=== PATIENT | female | born 1995 | race Caucasian/White ===

== ENCOUNTER 2020-11-29 21:55 | Emergency (ER) | payer OTHER, SELFPAY ==
[2020-11-29 22:15] VITALS: BP 140/86; PULSE 82; RESP 16; TEMP 36.6; O2SAT 98; BMI 30.5
[2020-11-30 00:32] LABS: Add Urine Microscopic? YES; Bilirubin Urine Neg (Negative); Blood Urine 3+ (Negative); Glucose Urine UA Norm (Normal); Ketones Urine Negative (Negative); Leukocyte Esterase Urine Negative (Negative); Nitrate Urine Negative (Negative); Protein Urine Neg (Negative); Urine Appearance Clear (CLEAR); Urine Color Yellow (Yellow); Urobilinogen Urine 1 mg/dL (Negative); pH Urine 5 (5-7)
[2020-11-30 00:38] LABS: Bacteria Urine TRACE /hpf; Calcium Oxalate Crystals Urine 40-55 /hpf; RBC Urine 15-25 /hpf (0-2); Squamous Epithelial Cell Urine 0-4 /hpf (0-5); WBC Urine 0-4 /hpf (0-5)
[2020-11-30 00:39] LABS: Add Urine Culture? No
== END 2020-11-30 00:24 | disposition left against medical advice (07) ==
PROVIDERS: Physician Assistant; Emergency Provider Family Medicine
DX: Z53.21 Procedure and treatment not carried out due to patient leaving prior to being seen by health care provider (principal)
CPT/HCPCS: 81001; 81025

== ENCOUNTER 2021-01-24 19:45 | Emergency (ER) | payer OTHER, SELFPAY ==
[2021-01-24 19:55] VITALS: BP 166/79; PULSE 69; RESP 18; TEMP 36.9; O2SAT 98; BMI 29.9
--- NOTE | 2021-01-24 21:49 | W.ED.ANIMALB ---
HPI - Animal Bite General: Chief Complaint: Animal Bite Stated Complaint: Dog Bite Time Seen by Provider: 01/24/21 21:14 History of Present Illness: HPI narrative: 26-year-old female comes in today with injury to the right hand. Patient was trying to break up 2 dogs fight and was bit on the back of the right hand. Patient has good range of motion of the hand. Patient has two 1 to 2 cm lacerations and one puncture wound to the back of the right hand. Patient reports animals immunizations were up-to-date. Patient's tetanus needed updated. Patient denies any allergies to medication. Review of Systems General: Reports: 10 or more systems reviewed and unremarkable except in HPI and below Skin/Breast: Reports: other (Laceration hand.) Physical Exam Const: COMMON NORMALS: no acute distress and patient oriented x3 GENERAL APPEARANCE: cooperative HENMT: COMMON NORMALS: normocephalic and Normal external nose present HEAD & SCALP: normal to inspection and normocephalic NOSE: Normal external nose present Eye: GENERAL EYE: appearance normal, both eyes and all related structures Neck/C-Spine: COMMON NORMALS: full ROM Chest: COMMONS NORMALS: normal inspection of the chest Resp: COMMON NORMALS: normal respiratory effort EFFORT & INSPECTION: Yes able to speak in complete sentences Cardio: COMMON NORMALS: regular rate and regular rhythm RATE: regular rate RHYTHM: regular rhythm GI: COMMON NORMALS: non-tender Extremity: COMMON NORMALS: normal to inspection Neuro: COMMON NORMALS: patient oriented x3 and moves all extremities Psych: COMMON NORMALS: mental status grossly normal and cooperative Skin: NARRATIVE SKIN EXAM: Two 1 cm lacerations to the dorsal right hand and one puncture wound. Hand has good range of motion and good strength. Procedures Laceration Laceration 1: Side (If applicable): right Size (cm): 1 Description: linear Depth: simple, single layer Local Anesthetic: lidocaine 1% Pre-repair: wound explored and irrigated extensively Skin layer closed with: nylon Size (cm): 4-0 Number of sutures: 1 Technique: horizontal mattress Laceration 2: Site: hand Side (If applicable): right Size (cm): 1 Description: linear Depth: simple, single layer Local Anesthetic: lidocaine 1% Pre-repair: wound explored and irrigated extensively Skin layer closed with: nylon Size (cm): 4-0 Number of sutures: 1 Technique: horizontal mattress Course Vital Signs: Vital signs: Vital Signs Temperature 98.4 F 01/24/21 19:55 Pulse Rate 69 01/24/21 19:55 Respiratory Rate 18 01/24/21 19:55 Blood Pressure 166/79 01/24/21 19:55 Pulse Oximetry 98 01/24/21 19:55 MDM - Animal Bite MDM Narrative: Medical decision making narrative: Patient comes in for injury to the right hand. On exam we note three 1 cm superficial lacerations to the dorsum of the right hand, and one puncture wound. Patient has good range of motion of the hand, no tendon function deficit is noted. Normal nerve sensation is noted. Differential diagnosis includes but not limited to need for prophylaxis antibiotic, need for prophylaxis tetanus, and lacerations. No sign of fracture or foreign bodies were noted in the wounds. Patient was updated on tetanus. Patient was started on Augmentin 1 tablet twice a day for 7 days. Encourage activity as tolerated. Recommend sutures out in 7 days. Reviewed care and other instructions with patient who reported understanding. Discharge Plan Discharge Patient Disposition: Home Clinical Impression: Dog bite Qualifiers: Encounter type: initial encounter Qualified Code(s): W54.0XXA - Bitten by dog, initial encounter Laceration of hand Qualifiers: Encounter type: initial encounter Foreign body presence: without foreign body Laterality: right Qualified Code(s): S61.411A - Laceration without foreign body of right hand, initial encounter Condition: Stable Prescriptions: New Augmentin 875-125 mg tablet 1 tab PO BID Qty: 14 RF: 0 Discharge Orders: Discharge ED (Routine); Ordered 01/24/21 Ordered By: Hector Feliciano Discharge Diet: Usual diet Discharge Activity: Increase activity as tolerated Patient Instructions: Suture Care (ED), Opioid Safety Activity Restrictions/Additional Instructions: Keep wound clean and dry. Activity as tolerated. Take antibiotic 1 tablet twice a day for 7 days. Sutures out in 7 days. Follow-up with primary care in 1 week for recheck. Return to the ED for worsening symptoms or new concerns. Coding Level of Care Code ED Railway Engineer for Agnieszka Malik
[2021-01-24] MEDS: amoxicillin-clav 875-125 mg Tablet 1 TAB PO (22:23)
[2021-01-24 22:29] VITALS: PULSE 84; RESP 16; O2SAT 96
== END 2021-01-24 22:33 | disposition home or self-care (01) ==
PROVIDERS: Emergency Provider Nurse Practitioner Family
DX: S61.451A Open bite of right hand, initial encounter (principal); W54.0XXA Bitten by dog, initial encounter
CPT/HCPCS: 12001; 90715; 99283

== ENCOUNTER 2021-07-22 18:25 | Emergency (ER) | payer OTHER, SELFPAY ==
--- NOTE | 2021-07-22 18:49 | CTR_ITS ---
PROCEDURE INFORMATION: Exam: CT Head Without Contrast Exam date and time: 07/22/2021 7:46 PM Age: 26 years old Clinical indication: Injury or trauma; Fall; Blunt trauma (contusions or hematomas); Without loss of consciousness; Patient HX: Fell out of bed hitting back of head on dresser; Additional info: Head injury TECHNIQUE: Imaging protocol: Computed tomography of the head without contrast. Radiation optimization: All CT scans at this facility use at least one of these dose optimization techniques: automated exposure control; mA and/or kV adjustment per patient size (includes targeted exams where dose is matched to clinical indication); or iterative reconstruction. COMPARISON: No relevant prior studies available. RADIATION DOSE METRICS: Total DLP (mGy-cm): 828.1 FINDINGS: Brain: Normal. No hemorrhage. Unremarkable white matter. No mass effect. Cerebral ventricles: No ventriculomegaly. Paranasal sinuses: Partially opacified posterior ethmoid air cells. No fluid levels. Mastoid air cells: Visualized mastoid air cells are well aerated. Auditory system: Filling defects in the bilateral external auditory canals is most likely cerumen. Bones/joints: Unremarkable. No acute fracture. Soft tissues: Unremarkable. CT/CT head wo con* [id number] IMPRESSION: 1. No acute intracranial abnormality.
[2021-07-22 18:59] VITALS: BP 131/85; PULSE 83; RESP 16; TEMP 37.1; O2SAT 100; BMI 29.2
--- NOTE | 2021-07-22 19:21 | ED_ITS ---
HPI - Fall General: Chief Complaint: Fall Stated Complaint: Hit head Time Seen by Provider: 07/22/21 19:05 History of Present Illness: 26-year-old female who fell off of her bed, striking the back side of her head. This was around 1 PM. She has throbbing in her head. Pain is decreased after acetaminophen and ibuprofen. She was nauseated for a while. She is not dizzy. MD complaint: fall Onset (ago): hour(s) Fall from: standing Place fall occurred: home Loss of consciousness: None Prolonged down time: no Symptoms prior to fall: none Context: tripped/slipped Location of injury: head Severity: moderate Quality: throbbing Associated symptoms-after fall: Reports headache(s); Denies abdominal pain, chest pain, confusion, difficulty walking, hematuria, lightheadedness, neck pain, numbness, short of breath, vertigo or weakness Review of Systems Card: Denies: chest pain or lightheadedness GI: Denies: abdominal pain : Denies: hematuria Musc: Denies: neck pain Neuro: Reports: headache(s); Denies: difficulty walking, vertigo or confusion Physical Exam Const: GENERAL APPEARANCE: cooperative and comfortable ORIENTATION/CONSCIOUSNESS: Yes awake, Yes oriented to person and Yes oriented to time HENMT: COMMON NORMALS: normocephalic and Normal external nose present HEAD & SCALP: normocephalic FACE & SINUS: normal facial exam NOSE: Normal external nose present THROAT: posterior oropharynx normal Eye: COMMON NORMALS: Equal, round and reactive pupils present and EOMs intact bilaterally PUPIL: Yes Equal, round and reactive pupils present Neck/C-Spine: COMMON NORMALS: full ROM GENERAL: No tender Resp: COMMON NORMALS: normal respiratory effort and No use of accessory muscles Cardio: COMMON NORMALS: regular rate and regular rhythm RATE: regular rate RHYTHM: regular rhythm Neuro: JARED COMA SCALE: document GCS findings Carbon coma scale eye opening: Spontaneous Jared coma scale verbal response: Orientated Jared coma scale motor response: Obey commands Jared coma scale total score: 15 SENSORIUM/ORIENTATION: Yes oriented to person and Yes oriented to time CRANIAL NERVES: Yes CN normal except as noted COORDINATION/BALANCE: [id number] test normal, does not sway with eyes open and Romberg test negative SPEECH: speech normal MOTOR EXAM: Pronator motor function not present COORDINATION: [id number] test normal and does not sway with eyes open Psych: COMMON NORMALS: mental status grossly normal Course Vital Signs: Vital signs: Vital Signs Temperature 98.8 F 07/22/21 18:59 Pulse Rate 83 07/22/21 18:59 Respiratory Rate 16 07/22/21 18:59 Blood Pressure 131/85 07/22/21 18:59 Pulse Oximetry 100 07/22/21 18:59 MDM - Fall Medical Decision Making 26-year-old female who hit her head. Head CT is negative. Her neurological exam is normal. She will be allowed discharge Lab Data Radiology Impressions Head CT 07/22/21 18:49 IMPRESSION: 1. No acute intracranial abnormality. Discharge Plan Discharge Patient Disposition: Home Clinical Impression: Concussion without loss of consciousness Condition: Stable Prescriptions: No Action Augmentin 875-125 mg tablet 1 tab PO BID Qty: 14 0RF Discharge Orders: Discharge ED (Routine); Ordered 07/22/21 Ordered By: Jose Kerr Discharge Diet: Advance as tolerated Discharge Activity: Limit activity as instructed Patient Instructions: Concussion (ED) Activity Restrictions/Additional Instructions: Rest until symptoms resolve. Return to the emergency department for vomiting, worsening headache, mental status changes, dizziness, any other concerning symptoms. Coding Level of Care Code ED Supervisor Type Bar And Segment for Agnieszka Malik Exam Comprehensive
== END 2021-07-22 20:23 | disposition home or self-care (01) ==
PROVIDERS: Emergency Provider Emergency Medicine
DX: S06.0X0A Concussion without loss of consciousness, initial encounter (principal); W06.XXXA Fall from bed, initial encounter
CPT/HCPCS: 70450; 99282

== ENCOUNTER 2021-08-17 10:08 | Emergency (ER) | payer OTHER, SELFPAY ==
[2021-08-17 10:40] VITALS: BP 123/77; PULSE 93; RESP 16; TEMP 36.7; O2SAT 98; BMI 29.8
[2021-08-17 11:41] LABS: Basophils % 0.3 %; Eosinophils # 0.1 10^3/uL (0.0-0.8); Eosinophils % 0.8 %; Hematocrit 41.6 % (37.0-47.0); Hemoglobin 13.9 g/dL (11.5-15.3); Lymphocytes % 21.8 %; Mean Corpuscular HGB Conc 33.4 g/dL (30.0-36.0); Mean Corpuscular Hemoglobin 28.5 pg (28.0-34.0); Mean Corpuscular Volume 85.4 fl (81-99); Mean Platelet Volume 10.1 fL (7.4-10.4); Monocytes # 0.6 10^3/uL (0.2-0.9); Monocytes % 6.2 %; Neutrophils # 6.54 10^3/uL (1.8-7.7); Neutrophils % 70.7 %; Nucleated Red Blood Cells % 0 %; Platelet Count 330 10^3/cmm (130-400); Red Blood Count 4.87 10^6/uL (4.1-5.3); White Blood Count 9.2 10^3/uL (4.0-10.0)
--- NOTE | 2021-08-17 11:43 | ED_ITS ---
HPI - General Adult General: Chief complaint: Back Pain/Injury Stated complaint: lower back pain Time Seen by Provider: 08/17/21 11:07 History of Present Illness: Patient is a 26-year-old female with history of recurrent UTI presenting to the emergency room with urinary discomfort, urinary urgency and bilateral flank pain x1 week. Patient tells me that she has a history of UTI and thinks that she may be having a UTI again. Patient tells me she took cranberry juice without any relief of symptoms. Patient denies any fever or chills, cough, runny nose sore throat. Patient denies any abdominal pain, new vaginal discharge, decreased p.o. intake with significant nausea or vomiting. Patient denies any melena/hematochezia or any other abdominal complaints. No prior history acute renal colic. Onset: 1 week ago Duration:1 week Location:home Severity:mild/moderate Associated symptoms: Deny chest pain, dyspnea, nausea, rash, palpitations or vomiting Review of Systems Const: Denies: fever(s) or chills Eyes: Denies: change in vision ENMT: Denies: mouth pain Card: Denies: chest pain or palpitations Resp: Denies: dyspnea or non-productive cough GI: Denies: abdominal pain, nausea, vomiting or diarrhea : Reports: flank pain, dysuria and urinary frequency Musc: Denies: extremity pain Skin/Breast: Denies: rash or new lesions Neuro: Denies: weakness in extremities Psych: Reports: other (Normal mood) Juan/Lymph: Denies: easy bruising PFS ED PFSH: Medical History UTI (urinary tract infection) Social History Smoking and tobacco status: never smoked Alcohol intake: never Substance/Drug Use: never Physical Exam Const: COMMON NORMALS: alert HENMT: COMMON NORMALS: atraumatic HEAD & SCALP: atraumatic MOUTH: moist mucous membranes not abnormal Eye: COMMON NORMALS: EOMs intact bilaterally and conjunctivae normal CONJUNCTIVA: Yes conjunctivae normal Neck/C-Spine: COMMON NORMALS: full ROM and supple Resp: COMMON NORMALS: normal respiratory effort and clear to auscultation bilaterally AUSCULTATION: clear to auscultation bilaterally Cardio: COMMON NORMALS: regular rate RATE: regular rate GI: COMMON NORMALS: Soft to palpation and non-tender PALPATION: Yes Soft to palpation OTHER: No focal TTP. NO guarding rebound, guarding, rigidity. +mild R CVA tenderness to percussion. Neg Arriola/Neg McBurney's point tenderness, no suprabupic tenderness to palpation. Extremity: COMMON NORMALS: full ROM Neuro: SENSORIUM/ORIENTATION: Yes alert MOTOR EXAM: No Abnormal motor strength present and Other motor observations present (no focal motor deficits) Psych: COMMON NORMALS: speech normal SPEECH: Yes normal speech MOOD & AFFECT: Yes euthymic mood Course Vital Signs: Vital signs: Vital Signs Temperature 98.1 F 08/17/21 10:40 Pulse Rate 93 08/17/21 10:40 Respiratory Rate 16 08/17/21 10:40 Blood Pressure 123/77 08/17/21 10:40 Pulse Oximetry 98 08/17/21 10:40 MDM - General Adult Medical Decision Making 26-year-old female history of recurrent UTI presents emergency room with complaints of dysuria, polyuria, and bilateral flank pain right greater than left. On exam, patient has mild right CVA tenderness. White count minimal. UA consistent with UTI. At the present time, patient does not have any significant nausea or vomiting. Patient is able to tolerate p.o. without any difficulty. Heart rate improved without any intervention. Rx cefdinir BID x 10 days for UTI/early pyelonephritis, zofran PRN nausea/vomiting Disposition: Discharge. Patient counseled regarding diagnostic impression, treatment plan. Patient given ED strict return precautions to return for continuation, worsening, or development of new symptoms. Instructed to f/u w/ PCP regarding symptoms today. Patient verbalized understanding. Lab Data : 08/17/21 11:29 08/17/21 11:29 Laboratory Results WBC 9.2 10^3/uL (4.0-10.0) 08/17/21 11:29 RBC 4.87 10^6/uL (4.1-5.3) 08/17/21 11:29 Hgb 13.9 g/dL (11.5-15.3) 08/17/21 11:29 Hct 41.6 % (37.0-47.0) 08/17/21 11:29 MCV 85.4 fl (81-99) 08/17/21 11:29 MCH 28.5 pg (28.0-34.0) 08/17/21 11: MCHC 33.4 g/dL (30.0-36.0) 08/17/21 11: RDW 13.0 % (12.1-15.1) 08/17/21 11:29 Plt Count 330 10^3/cmm (130-400) 08/17/21 11: MPV 10.1 fL (7.4-10.4) 08/17/21 11:29 Neut % (Auto) 70.7 % 08/17/21 11: Lymph % (Auto) 21.8 % 08/17/21 11: [place] % (Auto) 6.2 % 08/17/21 11: Eos % (Auto) 0.8 % 08/17/21 11: Baso % (Auto) 0.3 % 08/17/21 11: Neut # (Auto) 6.54 10^3/uL (1.8-7.7) 08/17/21 11:29 Lymph # (Auto) 2.0 10^3/uL (0.8-4.8) 08/17/21 11:29 [place] # (Auto) 0.6 10^3/uL (0.2-0.9) 08/17/21 11: Eos # (Auto) 0.1 10^3/uL (0.0-0.8) 08/17/21 11:29 Baso # (Auto) 0.0 10^3/uL (0.0-0.1) 08/17/21 11: Nucleated RBC % (auto) 0 % 08/17/21 11: Nucleated RBCs # 0.0 /100WBC 08/17/21 11:29 Sodium 140 mmol/L (136-145) 08/17/21 11:29 Potassium 4.1 mmol/L (3.5-5.1) 08/17/21 11: Chloride 100 mmol/L (98-107) 08/17/21 11: Carbon Dioxide 27 mmol/L (22-29) 08/17/21 11:29 Anion Gap 17.1 (5-19) 08/17/21 11:29 BUN 9 mg/dL (6-20) 08/17/21 11:29 Creatinine 0.6 mg/dL (0.5-0.9) 08/17/21 11:29 GFR Calculation 119.9 mL/min (90-130) 08/17/21 11:29 Glucose 95 mg/dL (65-115) 08/17/21 11:29 Calculated Osmolality 288 mOsm/kg (285-295) 08/17/21 11:29 Calcium 10.7 mg/dL (8.5-10.5) H 08/17/21 11:29 HCG, Qual Negative (Negative) 08/17/21 11:14 Urine Color Yellow (Yellow) 08/17/21 11:14 Urine Appearance Hazy (CLEAR) A 08/17/21 11:14 Urine pH 7 (5-7) 08/17/21 11:14 Ur Specific [place] 1.005 (1.005-1.030) 08/17/21 11:14 Urine Protein Neg (Negative) 08/17/21 11:14 Urine Glucose (UA) Norm (Normal) 08/17/21 11:14 Urine Ketones Negative (Negative) 08/17/21 11:14 Urine Blood 2+ (Negative) H 08/17/21 11:14 Urine Nitrate Negative (Negative) 08/17/21 11:14 Urine Bilirubin Neg (Negative) 08/17/21 11:14 Urine Urobilinogen Neg mg/dL (Negative) 08/17/21 11:14 Ur Leukocyte Esterase 2+ (Negative) H 08/17/21 11:14 Urine RBC 0-4 /hpf (0-2) H 08/17/21 11:14 Urine WBC 55-80 /hpf (0-5) H 08/17/21 11:14 Ur Squamous Epith Cells 0-4 /hpf (0-5) H 08/17/21 11:14 Amorphous Sediment Not Reportable 08/17/21 11:14 Urine Bacteria Trace /hpf (NONE) 08/17/21 11:14 Discharge Plan Discharge Patient Disposition: Home Clinical Impression: UTI (urinary tract infection), Pyelonephritis Prescriptions: New ondansetron 4 mg tablet,disintegrating 4 mg PO TID PRN (Reason: nausea and vomiting) 4 Days Qty: 12 0RF cefdinir 300 mg capsule 300 mg PO BID 7 Days Qty: 14 0RF No Action Augmentin 875-125 mg tablet 1 tab PO BID Qty: 14 0RF Discharge Orders: Discharge ED (Routine); Ordered 08/17/21 Ordered By: Nanci Garcia Discharge Diet: Advance as tolerated Discharge Activity: Increase activity as tolerated Patient Instructions: Dysuria (ED) Activity Restrictions/Additional Instructions: Please take your antibiotics as instructed. Watch out for signs of skin changes/redness, mouth redeness or swelling, nausea/vomiting, diarrhea, blood in the urine or any new or concenring complaints. Pleaes come back to the emergency room any fever or chills, inability hold water or drink down or any new extreme complaints. Stand Alone Forms: Work/School Release Coding Level of Care Code ED Bedspread Cutter Hand for Agnieszka Fwd Exam Comprehensive
[2021-08-17 11:51] LABS: HCG Qualitative Urine. Negative (Negative)
[2021-08-17 11:57] LABS: Anion Gap 17.1 (5-19); Blood Urea Nitrogen 9 mg/dL (6-20); Calcium 10.7 mg/dL (8.5-10.5); Carbon Dioxide 27 mmol/L (22-29); Chloride 100 mmol/L (98-107); Glomerular Filtration Rate 119.9 mL/min (90-130); Glucose 95 mg/dL (65-115); Osmolality Calculated 288 mOsm/kg (285-295); Potassium 4.1 mmol/L (3.5-5.1); Sodium 140 mmol/L (136-145)
[2021-08-17 12:35] LABS: Add Urine Culture? Yes; Add Urine Microscopic? YES; Bacteria Urine TRACE /hpf; Bilirubin Urine Neg (Negative); Blood Urine 2+ (Negative); Glucose Urine UA Norm (Normal); Ketones Urine Negative (Negative); Leukocyte Esterase Urine 2+ (Negative); Nitrate Urine Negative (Negative); Protein Urine Neg (Negative); RBC Urine 0-4 /hpf (0-2); Specific Gravity, Urine 1.005 (1.005-1.030); Squamous Epithelial Cell Urine 0-4 /hpf (0-5); Urine Appearance Hazy (CLEAR); Urine Color Yellow (Yellow); Urobilinogen Urine Neg (Negative); WBC Urine 55-80 /hpf (0-5); pH Urine 7 (5-7)
[2021-08-17] MEDS: cefdinir 300 MG CAPSULE PO (13:12)
== END 2021-08-17 13:13 | disposition home or self-care (01) ==
PROVIDERS: Emergency Provider Emergency Medicine
DX: N39.0 Urinary tract infection, site not specified (principal); N12 Tubulo-interstitial nephritis, not specified as acute or chronic; Z87.440 Personal history of urinary (tract) infections
CPT/HCPCS: 80048; 81001; 81025; 85025; 87077; 87086; 87186; 99283

== ENCOUNTER 2024-01-14 20:28 | Emergency (ER) | payer OTHER, SELFPAY ==
[2024-01-14 20:40] VITALS: BP 129/92; PULSE 89; RESP 18; TEMP 36.7; O2SAT 100; BMI 27.4
--- NOTE | 2024-01-14 20:43 | ED_ITS ---
HPI - Female Genitourinary General: Chief complaint: Urogenital-Female Stated complaint: back pain, freq urinate, Time Seen by Provider: 01/14/24 20:35 Source: patient Mode of arrival: ambulatory Limitations: no limitations History of Present Illness: Patient is a 29-year-old female presents the emergency department complaining of urinary frequency for the past 3 days. She notes a history of several urinary tract infections dating back to when she was a young child, and has required multiple rounds antibiotics. However she states that this year she has not had any urinary tract infections and she does take Azo prophylactically. Her current symptoms are urinary frequency as mentioned as well as some low back pain. She is denying any blood in her urine, dysuria, incontinence, abdominal pain, or other symptoms at this time. Specifically she is also denying any fever, nausea, vomiting, or upper back pain. MD elicited complaint: UTI Pertinent past history: recurrent UTIs Onset (ago): day(s) (3) Associated symptoms: Deny abdominal pain, headache(s) or nausea Related Data Previous Rx's Medication Instructions Recorded [id number] 3.5 2 drp ophthalmic (eye) Q8H #5 mL 01/14/23 mg/mL-10,000 unit/mL-0.1% eye drops (Maxitrol) nitrofurantoin 100 mg PO BID 7 days #14 caps 01/14/24 monohydrate/macrocrystals 100 mg capsule (Macrobid) Allergies Allergy/AdvReac Type Severity Reaction Status Date / Time No Known Allergies Allergy Verified 01/14/24 20:44 Review of Systems General: Reports: 10 or more systems reviewed and unremarkable except in HPI and below Const: Denies: fever(s), chills, change in appetite, change in weight or diaph oresis ENMT: Denies: throat pain or hoarseness Card: Denies: chest pain, palpitations or lightheadedness Resp: Denies: dyspnea, productive cough or wheezing GI: Denies: abdominal pain, nausea, vomiting, diarrhea, constipation, bloating, change in stool character or hematochezia : Reports: urinary frequency; Denies: flank pain, difficulty voiding, dysuria, urinary urgency or hematuria Musc: Reports: back pain; Denies: neck pain Skin/Breast: Denies: rash or new lesions Neuro: Denies: headache(s) or dizziness PFSH ED PFSH: Medical History UTI (urinary tract infection) Social History Smoking and tobacco/nicotine status: never used tobacco/nicotine Alcohol intake: never Substance/Drug Use: never Physical Exam Const: COMMON NORMALS: no acute distress, average body habitus, patient oriented x3, no limitations, healthy appearing, alert and well nourished GENERAL APPEARANCE: cooperative and comfortable ORIENTATION/CONSCIOUSNESS: Yes awake HENMT: COMMON NORMALS: normocephalic, atraumatic, hearing grossly normal bilaterally, external ears normal, Normal external nose present, Normal nasal mucous membranes and turbinates present and moist oral mucous membranes HEAD & SCALP: normocephalic and atraumatic NOSE: Normal external nose present and Normal nasal mucous membranes and turbinates present EXTERNAL EAR: Yes external ears normal Eye: COMMON NORMALS: Equal, round and reactive pupils present, EOMs intact bilaterally, conjunctivae normal and normal visual lopez by confrontation CONJUNCTIVA: Yes conjunctivae normal PUPIL: Yes Equal, round and reactive pupils present Neck/C-Spine: COMMON NORMALS: full ROM, supple, no meningeal signs and no JVD Resp: COMMON NORMALS: normal respiratory effort, No retractions, No use of accessory muscles and clear to auscultation bilaterally AUSCULTATION: clear to auscultation bilaterally, no crackles, no rales, no rhonchi and no wheezes Cardio: COMMON NORMALS: no JVD, regular rate, regular rhythm, S1 normal heart sound present, S2 normal heart sound present, No gallops present (Cardio), No clicks present (Cardio), No murmurs present (Cardio), No rub (Cardio) and Peripheral pulses 2+ throughout RATE: regular rate RHYTHM: regular rhythm HEART SOUNDS: S1 normal heart sound present and S2 normal heart sound present PERIPHERAL PULSES: Peripheral pulses 2+ throughout GI: COMMON NORMALS: Normal to inspection, nondistended, normoactive bowel sounds present, Soft to palpation, No hepatosplenomegaly present and no masses AUSCULTATION: Yes normoactive bowel sounds PALPATION: Yes Soft to palpation, No Guarding due to palpation present (GI), No Rigid due to palpation and Yes No hepatosplenomegaly present RECTAL EXAM: deferred OTHER: Some suprapubic tenderness with deep palpation : COMMON NORMALS: Yes no CVA tenderness BLADDER/KIDNEY EXAM: Yes no CVA tenderness Back/Pelvis: COMMON NORMALS: no CVA tenderness Extremity: COMMON NORMALS: normal to inspection and full ROM Neuro: COMMON NORMALS: patient oriented x3, moves all extremities, no focal motor deficits and no sensory deficits noted SENSORIUM/ORIENTATION: Yes alert MENINGEAL SIGNS: Yes no meningeal signs Psych: COMMON NORMALS: mental status grossly normal, cooperative and speech normal SPEECH: Yes normal speech Skin: COMMON NORMALS: no rashes or lesions noted GENERAL SKIN EXAM: no rashes or lesions noted Course Vital Signs: Vital signs: Vital Signs Temperature 98.1 F 01/14/24 20:40 Pulse Rate 79 01/14/24 20:44 Respiratory Rate 18 01/14/24 20:40 Blood Pressure 134/95 01/14/24 20:44 Pulse Oximetry 99 01/14/24 20:44 Oxygen Delivery Me thod Room Air 01/14/24 20:44 MDM - Female Medical Decision Making Patient presented stating she is having identical symptoms of prior urinary tract infections. However her urinalysis was not overtly positive for urinary tract infection, though during shared decision-making with the patient she would prefer to start antibiotics anyways as she does not know what else could be causing her symptoms. I have no clinical suspicion or urinalysis evidence that this is an ascending kidney infection, we will treat with Macrobid and have her follow-up with primary care if she continues to have symptoms for further evaluation. Reasons to return discussed. Lab Data Laboratory Results HCG, Qual Negative (Negative) 01/14/24 20:44 Urine Color Yellow (Yellow) 01/14/24 20:44 Urine Appearance Clear (CLEAR) 01/14/24 20:44 Urine pH 5 (5-7) 01/14/24 20:44 Ur Specific [place] 1.025 (1.005-1.030) 01/14/24 20:44 Urine Protein Neg (Negative) 01/14/24 20:44 Urine Glucose (UA) Norm (Normal) 01/14/24 20:44 Urine Ketones Negative (Negative) 01/14/24 20:44 Urine Blood Neg (Negative) 01/14/24 20:44 Urine Nitrate Negative (Negative) 01/14/24 20:44 Urine Bilirubin Neg (Negative) 01/14/24 20:44 Urine Urobilinogen Neg mg/dL (Negative) 01/14/24 20:44 Ur Leukocyte Esterase 2+ (Negative) H 01/14/24 20:44 Urine RBC None /hpf (0-2) 01/14/24 20:44 Urine WBC 0-4 /hpf (0-5) H 01/14/24 20:44 Ur Squamous Epith Cells 15-25 /hpf (0-5) H 01/14/24 20:44 Amorphous Sediment Not Reportable 01/14/24 20:44 Urine Bacteria None /hpf (NONE) 01/14/24 20:44 No radiology studies performed this visit Discharge Plan Discharge Patient Disposition: Home Clinical Impression: Urinary tract infection Qualifiers: Urinary tract infection type: site unspecified Hematuria presence: without hematuria Qualified Code(s): N39.0 - Urinary tract infection, site not specified Condition: Stable Prescriptions: New Macrobid 100 mg capsule 100 mg PO BID 7 Days Qty: 14 0RF Rx Instructions: must administer with a meal/food No Action neomycin-polymyxin B-dexameth [Maxitrol] 3.5mg/mL-10,000 unit/mL-0.1 % drops,suspension 2 drp ophthalmic (eye) Q8H Qty: 5 0RF Discharge Orders: Discharge ED (Routine); Ordered 01/14/24 Ordered By: Burt Yan Discharge Diet: As Directed Discharge Activity: Increase activity as tolerated Patient Instructions: Urinary Tract Infection in Women (ED) Activity Restrictions/Additional Instructions: Macrobid. Please drink plenty of fluids. Follow-up with primary care for further evaluation and return with any new or worsening. Coding Level of Care Code ED [employer] for Agnieszka Malik
[2024-01-14 20:44] VITALS: BP 134/95; PULSE 79; O2SAT 99
[2024-01-14 21:03] LABS: HCG Qualitative Urine. Negative (Negative)
[2024-01-14 21:08] LABS: Urine Color Yellow (Yellow)
[2024-01-14 21:09] LABS: Add Urine Culture? No; Add Urine Microscopic? YES; Bilirubin Urine Neg (Negative); Blood Urine Neg (Negative); Glucose Urine UA Norm (Normal); Ketones Urine Negative (Negative); Leukocyte Esterase Urine 2+ (Negative); Nitrate Urine Negative (Negative); Protein Urine Neg (Negative); Specific Gravity, Urine 1.025 (1.005-1.030); Squamous Epithelial Cell Urine 15-25 /hpf (0-5); Urine Appearance Clear (CLEAR); Urobilinogen Urine Neg (Negative); WBC Urine 0-4 /hpf (0-5); pH Urine 5 (5-7)
[2024-01-14 21:14] VITALS: BP 121/89; PULSE 75; O2SAT 99
[2024-01-14 21:33] VITALS: BP 109/68; PULSE 70; O2SAT 97
== END 2024-01-14 21:35 | disposition home or self-care (01) ==
PROVIDERS: Emergency Provider Physician Assistant
DX: N39.0 Urinary tract infection, site not specified (principal); Z87.440 Personal history of urinary (tract) infections
CPT/HCPCS: 81001; 81025; 99283